=== PATIENT | male | born 1930 | race Caucasian/White ===

== ENCOUNTER 2017-12-11 23:47 | Emergency (ER) | payer OTHER ==
[~2017-12-11] VITALS: Ht 172.7 cm; Wt 93.3 kg
[2017-12-12 04:06] VITALS: BP 117/50
== END 2017-12-12 04:07 | disposition home or self-care (01) ==
LOC: EME → EDBD 23:47 → EME 12-12 04:07
DX: S06.6X0A Traumatic subarachnoid hemorrhage without loss of consciousness, initial encounter (principal); S51.012A Laceration without foreign body of left elbow, initial encounter; W18.30XA Fall on same level, unspecified, initial encounter; Y92.199 Unspecified place in other specified residential institution as the place of occurrence of the external cause; F03.90 Unspecified dementia, unspecified severity, without behavioral disturbance, psychotic disturbance, mood disturbance, and anxiety; I10 Essential (primary) hypertension; I25.10 Atherosclerotic heart disease of native coronary artery without angina pectoris; K74.60 Unspecified cirrhosis of liver; Z88.0 Allergy status to penicillin
CPT/HCPCS: 70450; 71046; 72125; 72170; 73080; 99281; 99283

== ENCOUNTER 2018-03-03 00:48 | Emergency (ER) | payer OTHER ==
[~2018-03-03] VITALS: Ht 172.7 cm; Wt 84.1 kg
[2018-03-03 01:31] LABS: HEMATOCRIT 37.5 % (38.0-50.0); MCH 32.5 PG (29.0-34.0); MCHC 34.7 G/DL (30.0-36.0); MCV 93.8 FL (86-99); PLATELET COUNT 91 K/uL (156-360); RBC DIS.WIDTH-CV 15.2 % (11.8-14.6); RBC DIS.WIDTH-SD 52.8 % (39-53); WHITE BLOOD COUNT 5.9 K/uL (4.1-10.2)
[2018-03-03 01:41] LABS: CHLORIDE 108 mEq/L (99-109); POTASSIUM 4.2 mEq/L (3.7-5.4); SODIUM 139 mEq/L (136-147)
[2018-03-03 01:43] LABS: GLUCOSE 98 mg/dL (70-99)
[2018-03-03 01:47] LABS: CREATININE 0.9 mg/dL (0.6-1.3); GFR ESTIMATE (CALCULATED) > 59 mL/min/ (58.99-99999)
[2018-03-03 01:48] LABS: UREA NITROGEN (BUN) 29 mg/dL (9-23)
[2018-03-03 01:54] LABS: TROP-I INTERPRETATION NEGATIVE; TROPONIN-I 0.01 ng/mL (0.0-0.30)
[2018-03-03 05:29] VITALS: BP 114/76
== END 2018-03-03 05:30 | disposition home or self-care (01) ==
LOC: EME 00:48
PROVIDERS: Emergency Medicine
DX: S51.812A Laceration without foreign body of left forearm, initial encounter (principal); S41.111A Laceration without foreign body of right upper arm, initial encounter; S51.012A Laceration without foreign body of left elbow, initial encounter; W18.30XA Fall on same level, unspecified, initial encounter; D69.6 Thrombocytopenia, unspecified; R00.1 Bradycardia, unspecified; M85.88 Other specified disorders of bone density and structure, other site; F03.90 Unspecified dementia, unspecified severity, without behavioral disturbance, psychotic disturbance, mood disturbance, and anxiety
CPT/HCPCS: 70450; 71045; 72125; 73090; 80048; 84484; 85027; 93005; 99281; 99285